=== PATIENT | female | born 1985 | race Caucasian/White ===

== ENCOUNTER 2020-09-17 04:38 | Day surgery (SDC) | payer OTHER, SELFPAY ==
[2020-09-06 12:33] VITALS: BMI 25.9
[2020-09-17] VITALS (10 sets, daily range): BP systolic 100–118; BP diastolic 54–84; PULSE 63–107; RESP 12–18; TEMP 36.1–36.6; O2SAT 94–100
[2020-09-17] MEDS: LACTATED RINGERS 1,000 ML 30 ML IV CONT ×3 (11:58→16:28)
--- NOTE | 2020-09-17 12:12 | WPDANESEPPF ---
Anes - Initial Pre Proc Eval Procedure: Operation Date: 09/17/20 13:30 Proposed Procedures p Removal Bilateral Breast Implants, - Ildefonso Snyder MD s Capsulectomy Breast Implant Exchange - Ildefonso Snyder MD Date/Time: 09/17/20 12:12 Surgeon: Ildefonso Snyder MD Pre Op Diagnosis: implant rupture Patient Data Age: 34 Gender: F Height: 5 ft 7 in Weight: 77.7 kg Last Vital Signs Temp 36.6 C 09/17/20 11:41 Pulse 70 09/17/20 11:41 Resp 16 09/17/20 11:41 BP 116/64 09/17/20 11:41 Pulse Ox 100 09/17/20 11:41 Allergies Allergy/AdvReac Type Severity Reaction Status Date / Time penicillin G Allergy Severe Swelling Verified 09/17/20 11:43 of Lip/Tongue/Throat/hives Home Medications Medication Instructions Recorded Confirmed Type cetirizine 10 mg PO DAILY 09/02/20 09/17/20 History norethindrone (contraceptive) 0.35 mg PO DAILY 09/06/20 09/17/20 History docusate sodium 100 mg capsule 100 mg PO DAILY #14 cap 09/10/20 09/17/20 Rx ondansetron HCl 4 mg tablet 4 mg PO Q8H #28 tablet 09/10/20 09/17/20 Rx oxycodone-acetaminophen 5 mg-325 1 tablet PO Q6H PRN #15 tablet 09/13/20 09/17/20 Rx mg tablet carisoprodol 350 mg tablet 350 mg PO TID PRN #21 tablet 09/14/20 09/17/20 Rx Patient hx anesthesia problems: post op nausea/vomiting Family hx anesthesia problems: none PMFSH Surgical History Surgical History History of breast augmentation Family History Family History Father Diabetes mellitus Social History Social History Smoking status: Former smoker Tobacco type: cigarettes Alcohol intake: current Substance use: never Living arrangements: with family Gender identity (if verbalized by the patient): Female Spiritual care concerns: No Anes - Eval Final PreProcedure Day of Procedure 09/17/20 12:12 Patient weight: overweight Heart: regular rate and rhythm Lungs: clear to auscultation Airway: Mallampati scale class II Neurological: alert and oriented Last oral intake: >/= 8 hours ASA classification: II Emergent: no Anesthetic plan: proceed Anesthesia type and monitoring: general LMA and standard monitoring Informed Consent: The patient's anesthetic plan and its attendant risks and benefits were discussed with the patient/family/POA. Questions were solicited and answers provided to the satisfaction of the patient/family/POA.
[2020-09-17] MEDS: SCOPOLAMINE 1.5 MG PATCH TRANSDERM (12:15)
--- NOTE | 2020-09-17 13:12 | WPDHPUPDATE1 ---
History and Physical Update Update Date/Time: 09/17/20 13:12 History and Physical has been reviewed, including an updated exam of the patient. There are NO changes in the patient's condition. Risks, benefits, and alternatives have been discussed and questions answered. Patient agrees to proceed with procedure.
--- NOTE | 2020-09-17 13:28 | PM.PROC ---
Procedure Note - Detailed Date of procedure: 09/17/20 Pre-op diagnosis: implant rupture Post-op diagnosis: same Procedure performed: Bilateral breast implant exchange Description of procedure: Preoperatively the risks, benefits, alternatives were discussed in extensive detail. I want her to be very realistic about the risks involved as well as expectations. Made sure answered all of her questions to her satisfaction today and consent was obtained. She understands there will be a charge for pathology evaluation of the textured capsule. Further exchange to smooth implant does not eliminate risk of ALCL. She was marked supine as well as in the standing position. Taken to the operating room placed supine on the operating room table. Anesthesia was provided by anesthesiology and prepped and draped in standard sterile fashion. 1% lidocaine and 0.25% Marcaine with epinephrine was used to provide a field block. A 15 blade used to make an incision excising the previous IMF scar. Disection was continued until the implant was removed. This was a total submuscular coverage and capsule very adherent to the muscle as such limited removed. On the right no worriseome features. On the left ruptured implant there was a double capsule and the double capsule was removed. Implants removed. I then copiously irrigated with saline solution on TUR tubing. Throughout the procedure I did have Tegaderm nipple Key in place. I irrigated the pocket with triple antibiotic Betadine solution. Wash my gloves. Using a no-touch technique and a Mccullough funnel the implant was introduced into the pocket. This was closed with 2-0 Vicryl followed by 3-0 Monocryl in a running subcuticular 4-0 Monocryl finally tissue glue. Dressings were placed. He was woken taken to the PACU without difficulty. All instrument sponge counts were correct at the end of the case. Anesthesia: GLMA Surgeon: Ildefonso Snyder MD Estimated blood loss (mL): 10 Drains: No Packing: No Pathology: yes (Left implant double capsule) Complications: No immediate complications Condition: stable Disposition: PACU Findings: Left breast implant was ruptured. Right intact. Previous implants were Allergan Style 168 450cc Implants placed were: Allergan Smooth 485cc Right: REF# [id number] SN [id number] Left: REF# [id number] SN [id number]
[2020-09-17] MEDS: BUPIVACAINE HCL 0.25% PF 30 ML VIAL INFILTRATE (13:37)
[2020-09-17] MEDS: LIDO 1%/EPINEPHRINE 1:100,000 10 ML VIAL 30 ML INFILTRATE (13:37)
[2020-09-17] MEDS: CLINDAMYCIN 900 MG/D5W 50 ML 900 MG/50 ML PIGGYBACK 50 MG IVPB (13:37)
[2020-09-17] MEDS: fentaNYL CITRATE INJ (*CRX) 100 MCG/2 ML VIAL 25 MCG IV PUSH ×8 (15:05→16:10)
[2020-09-17] MEDS: ONDANSETRON INJ 4 MG/2 ML VIAL IV PUSH ×2 (15:45→16:30)
[2020-09-17] MEDS: diphenhydrAMINE HCl INJ 50 MG/ML VIAL 12.5 MG IV PUSH ×2 (15:55→16:04)
== END 2020-09-17 17:50 | disposition home or self-care (01) ==
PROVIDERS: PCP Family Medicine; Visit Provider Surgery Plastic and Reconstructive Surgery
PROC: 0HPT0JZ Removal of Synthetic Substitute from Right Breast, Open Approach (ICD-10-PCS; CPT 19371; principal; 2020-09-17 13:30)
PROC: (CPT 19342; 2020-09-17 13:30)
DX: T85.41XA Breakdown (mechanical) of breast prosthesis and implant, initial encounter (principal); Y83.8 Other surgical procedures as the cause of abnormal reaction of the patient, or of later complication, without mention of misadventure at the time of the procedure; Z87.891 Personal history of nicotine dependence
CPT/HCPCS: 19371; 19325; 19328; 88304; 88305; A9270; J1100; J1200; J1580; J2250; J2405; J2704; J3010; J7120